=== PATIENT | female | born 1960 | race Caucasian/White ===

== ENCOUNTER 2018-08-16 14:57 | Inpatient (IN) | payer BC ==
[~2018-08-16] VITALS: Ht 167.6 cm; Wt 54.2 kg
[2018-08-16] MEDS ORDERED: FENOGLIDE40 MG PO (15:29)
[2018-08-16] MEDS ORDERED: NORVASC 10MG10 MG PO (15:29)
[2018-08-16] MEDS ORDERED: EFFEXOR100 MG PO (15:30)
[2018-08-16] MEDS ORDERED: 00186-0370-20 IH (15:30)
[2018-08-16] MEDS ORDERED: RT SPIRIVA18 MCG IH (15:31)
[2018-08-16] MEDS ORDERED: ALBUTEROL0.83 MG/ML IH (15:31)
[2018-08-16 15:36] LABS: HEMATOCRIT 45.4 % (37.0-47.0); HEMOGLOBIN 15.5 g/dl (12.5-16.0); MEAN CELL VOLUME 89 fl (80.0-100.0); MEAN CORPUSCULAR HEMOGLOBIN 31 pg (27.0-31.0); MEAN CORPUSCULAR HGB CONC 34 g/dl (33.0-37.0); MEAN PLATELET VOLUME 10.8 fl (7.4-10.4); PLATELET COUNT 190 K/mm3 (130-400); RED BLOOD COUNT 5.08 M/mm3 (4.10-5.30); REDCELL DISTRIBUTION WIDTH-CV 11.9 % (11.5-14.5)
[2018-08-16 15:44] LABS: ALANINE AMINOTRANSFERASE 25 U/L (9-52); ALBUMIN 4.1 gm/dL (3.5-5.0); ALKALINE PHOSPHATASE 51 U/L (50-136); ANION GAP 8 mmol/L (7-16); AST,SGOT 23 U/L (15-37); BILIRUBIN,TOTAL 0.5 mg/dL (0.0-1.0); BLOOD UREA NITROGEN 16 mg/dL (7-17); CALCIUM 9.4 mg/dL (8.4-10.2); CARBON DIOXIDE 29 mmol/L (22-30); CHLORIDE 95 mmol/L (98-107); GLUCOSE 107 mg/dL (74-106); LIPASE 15 U/L (23-300); POTASSIUM 4.5 mmol/L (3.4-5.0); SODIUM 132 mmol/L (137-145); TOTAL PROTEIN 7.4 gm/dL (6.4-8.2)
[2018-08-16 15:45] LABS: ALCOHOL(ethanol),MEDICAL < 10 mg/dL
[2018-08-16 15:55] LABS: C-REACTIVE PROTEIN 23.8 mg/dL (0.0-0.9)
[2018-08-16 16:03] LABS: BAND 27 % (0-10); LYMPHOCYTE 6 % (20.0-51.0); NEUTROPHILS 66 % (42.0-75.2); TOXIC GRANULATION PRESENT
[2018-08-16 16:05] LABS: PLATELET ESTIMATE NORMAL (NORMAL)
[2018-08-16] MEDS ORDERED: LOTENSIN40 MG PO (17:16)
[2018-08-16] MEDS ORDERED: EFFEXOR-XR150 MG PO (17:17)
[2018-08-16] MEDS ORDERED: CRESTOR 10MG10 MG PO (17:17)
[2018-08-16] MEDS ORDERED: NORVASC 5MG5 MG/TAB PO (17:17)
[2018-08-16] MEDS ORDERED: LOFIBRA54 MG PO (17:18)
[2018-08-16 17:47] VITALS: BP 87/53; PULSE 96; TEMP 98.4
[2018-08-16 19:58] VITALS: BP 105/60; PULSE 82; TEMP 98
[2018-08-17] VITALS (7 sets, daily range): BP systolic 95–119; BP diastolic 48–62; PULSE 72–92; TEMP 98–100.6
[2018-08-17 07:01] LABS: MEAN CELL VOLUME 92 fl (80.0-100.0); MEAN CORPUSCULAR HEMOGLOBIN 30 pg (27.0-31.0); MEAN CORPUSCULAR HGB CONC 33 g/dl (33.0-37.0); MEAN PLATELET VOLUME 11.2 fl (7.4-10.4); PLATELET COUNT 155 K/mm3 (130-400); RED BLOOD COUNT 4.14 M/mm3 (4.10-5.30); REDCELL DISTRIBUTION WIDTH-CV 12.3 % (11.5-14.5)
[2018-08-17 07:06] LABS: HEMOGLOBIN 12.5 g/dl (12.5-16.0)
[2018-08-17 07:10] LABS: CALCIUM 8.5 mg/dL (8.4-10.2); CREATININE, serum 0.86 mg/dL (0.52-1.25)
[2018-08-17 09:38] LABS: BAND 39 % (0-10); LYMPHOCYTE 2 % (20.0-51.0); NEUTROPHILS 59 % (42.0-75.2); PLATELET ESTIMATE NORMAL (NORMAL)
[2018-08-18 01:22] VITALS: BP 107/59; PULSE 86; TEMP 98.5
[2018-08-18 03:30] VITALS: BP 134/65; PULSE 76; TEMP 98.4
[2018-08-18 07:41] LABS: HEMOGLOBIN 10.9 g/dl (12.5-16.0); MEAN CELL VOLUME 88 fl (80.0-100.0); MEAN CORPUSCULAR HEMOGLOBIN 30 pg (27.0-31.0); MEAN CORPUSCULAR HGB CONC 34 g/dl (33.0-37.0); PLATELET COUNT 139 K/mm3 (130-400); RED BLOOD COUNT 3.63 M/mm3 (4.10-5.30); REDCELL DISTRIBUTION WIDTH-CV 12.1 % (11.5-14.5)
[2018-08-18 08:00] VITALS: BP 106/74; PULSE 82; TEMP 98.1
[2018-08-18 08:28] LABS: CALCIUM 8.3 mg/dL (8.4-10.2); CREATININE, serum 0.54 mg/dL (0.52-1.25); POTASSIUM 3.6 mmol/L (3.4-5.0)
[2018-08-18 09:39] LABS: BAND 30 % (0-10); LYMPHOCYTE 8 % (20.0-51.0); NEUTROPHILS 57 % (42.0-75.2); PLATELET ESTIMATE DECREASED (NORMAL)
[2018-08-18 09:40] LABS: HYPOCHROMIA 1+
[2018-08-18 16:00] VITALS: BP 140/75; PULSE 84; TEMP 98.3
[2018-08-18 21:21] VITALS: BP 132/72; PULSE 86; TEMP 98
[2018-08-19 02:26] VITALS: BP 138/80; PULSE 95
[2018-08-19 07:29] LABS: BASO % 0.3 % (0.0-2.0); EOS % 0.3 % (0-4.0); GRAN # 8.7 (1.4-6.5); GRAN % 80.3 % (42.2-75.2); HEMOGLOBIN 11.2 g/dl (12.5-16.0); LYMPH # 1.3 (1.2-3.4); LYMPH % 12.1 % (20.0-51.0); MEAN CELL VOLUME 88 fl (80.0-100.0); MEAN CORPUSCULAR HEMOGLOBIN 30 pg (27.0-31.0); MEAN CORPUSCULAR HGB CONC 34 g/dl (33.0-37.0); MEAN PLATELET VOLUME 10.9 fl (7.4-10.4); MONO # 0.7 (0.1-0.6); MONO % 6.3 % (1.7-9.3); PLATELET COUNT 185 K/mm3 (130-400); RED BLOOD COUNT 3.69 M/mm3 (4.10-5.30); REDCELL DISTRIBUTION WIDTH-CV 12.1 % (11.5-14.5)
[2018-08-19 07:33] LABS: HEMATOCRIT 32.6 % (37.0-47.0)
[2018-08-19 08:00] VITALS: BP 127/73; PULSE 81; TEMP 98.4
[2018-08-19] MEDS ORDERED: OMNICEF 300MG300 MG PO (10:22)
[2018-08-19] MEDS ORDERED: MEDROL 4MG DOSPA4 MG PO (10:23)
[2018-08-19] MEDS ORDERED: MUCINEX 60600 MG/TA1 PO (10:23)
[2018-08-19 12:17] VITALS: BP 136/74; PULSE 83; TEMP 98.4
== END 2018-08-19 16:43 | disposition home or self-care (01) | DRG 871 ==
LOC: COL.ER 14:57 → MEDICAL 16:44
PROVIDERS: Emergency Medicine; Internal Medicine; Physician Assistant
DX: A41.9 Sepsis, unspecified organism (principal); J18.9 Pneumonia, unspecified organism; J96.01 Acute respiratory failure with hypoxia; J44.0 Chronic obstructive pulmonary disease with (acute) lower respiratory infection; E87.1 Hypo-osmolality and hyponatremia; J44.1 Chronic obstructive pulmonary disease with (acute) exacerbation; I10 Essential (primary) hypertension; E78.5 Hyperlipidemia, unspecified; Z87.891 Personal history of nicotine dependence; K80.20 Calculus of gallbladder without cholecystitis without obstruction; K76.89 Other specified diseases of liver
CPT/HCPCS: 99222-AI; 99232-AI; 99239; A4216; J0456; J0696; J1650; J2270; J2405; J7030; J7040; J7050; J7512; Q9967

== ENCOUNTER 2018-11-13 05:34 | Emergency (ER) | payer BC ==
[~2018-11-13] VITALS: Ht 154.9 cm; Wt 52.3 kg
[~2018-11-13 05:34] MED LIST: 00186-0370-20 IH; ALBUTEROL0.83 MG/ML IH; CRESTOR 10MG10 MG PO; EFFEXOR-XR150 MG PO; EFFEXOR100 MG PO; FENOGLIDE40 MG PO; LOFIBRA54 MG PO; LOTENSIN40 MG PO; MEDROL 4MG DOSPA4 MG PO; MUCINEX 60600 MG/TA1 PO; NORVASC 10MG10 MG PO; NORVASC 5MG5 MG/TAB PO; OMNICEF 300MG300 MG PO; RT SPIRIVA18 MCG IH
[2018-11-13 05:48] LABS: BASO % 0.5 % (0.0-2.0); EOS % 0.4 % (0-4.0); GRAN # 4.4 (1.4-6.5); GRAN % 58.5 % (42.2-75.2); HEMATOCRIT 50.7 % (37.0-47.0); HEMOGLOBIN 16.3 g/dl (12.5-16.0); LYMPH # 2.2 (1.2-3.4); LYMPH % 28.4 % (20.0-51.0); MEAN CELL VOLUME 90 fl (80.0-100.0); MEAN CORPUSCULAR HEMOGLOBIN 29 pg (27.0-31.0); MEAN CORPUSCULAR HGB CONC 32 g/dl (33.0-37.0); MEAN PLATELET VOLUME 10.5 fl (7.4-10.4); MONO # 0.9 (0.1-0.6); MONO % 11.9 % (1.7-9.3); PLATELET COUNT 206 K/mm3 (130-400); RED BLOOD COUNT 5.62 M/mm3 (4.10-5.30); REDCELL DISTRIBUTION WIDTH-CV 13.9 % (11.5-14.5)
[2018-11-13 05:54] LABS: PROTHROMBIN TIME 11.6 SECONDS (9.7-12.8)
[2018-11-13 05:55] LABS: ARTERIAL BLD GAS O2 SATURATION 93.6 % (92-100); ARTERIAL BLD GAS TCO2 CT 28.2; ARTERIAL BLOOD GAS BASE EXCESS -2.2 (-2-2); ARTERIAL BLOOD GAS HCO3 26.4 meq/L (22-26); ARTERIAL BLOOD GAS PCO2 61.1 mmHg (35-45); ARTERIAL BLOOD GAS PO2 79.1 mmHg (80-100); ARTERIAL BLOOD GAS pH 7.25 (7.35-7.45)
[2018-11-13 06:03] LABS: ALANINE AMINOTRANSFERASE 14 U/L (9-52); ALBUMIN 4.6 gm/dL (3.5-5.0); ALKALINE PHOSPHATASE 69 U/L (50-136); ANION GAP 8 mmol/L (7-16); AST,SGOT 34 U/L (15-37); BILIRUBIN,TOTAL 0.4 mg/dL (0.0-1.0); BLOOD UREA NITROGEN 8 mg/dL (7-17); CALCIUM 10.2 mg/dL (8.4-10.2); CARBON DIOXIDE 32 mmol/L (22-30); CHLORIDE 102 mmol/L (98-107); CREATININE, serum 0.65 mg/dL (0.52-1.25); GLUCOSE 178 mg/dL (74-106); POTASSIUM 3.9 mmol/L (3.4-5.0); SODIUM 142 mmol/L (137-145); TOTAL PROTEIN 8.4 gm/dL (6.4-8.2)
[2018-11-13 06:18] LABS: TROPONIN-I < 0.012 ng/mL (0.000-0.034)
[2018-11-13 06:58] LABS: ARTERIAL BLD GAS O2 SATURATION 95.1 % (92-100); ARTERIAL BLD GAS TCO2 CT 29.5; ARTERIAL BLOOD GAS BASE EXCESS 0.1 (-2-2); ARTERIAL BLOOD GAS HCO3 27.8 meq/L (22-26); ARTERIAL BLOOD GAS PCO2 57.5 mmHg (35-45)
[2018-11-13] MEDS ORDERED: 00186-0370-20 IH (07:14)
[2018-11-13] MEDS ORDERED: PROAIR HFA0.09 MG/AC IH (07:14)
[2018-11-13] MEDS ORDERED: NORVASC 5MG5 MG/TAB PO (07:15)
[2018-11-13 09:06] VITALS: PULSE 98; TEMP 29
[2018-11-13 09:45] VITALS: BP 110/82
== END 2018-11-13 10:10 | disposition short-term general hospital (02) ==
LOC: COL.ER 05:34
PROVIDERS: Emergency Medicine
DX: J44.1 Chronic obstructive pulmonary disease with (acute) exacerbation (principal); J96.90 Respiratory failure, unspecified, unspecified whether with hypoxia or hypercapnia; I10 Essential (primary) hypertension; E78.5 Hyperlipidemia, unspecified; Z98.890 Other specified postprocedural states; Z87.891 Personal history of nicotine dependence
CPT/HCPCS: J2060; J2270; J3475; J7030

== ENCOUNTER → 2019-01-11 | Outpatient (CLI) | payer BC ==
[~2019-01-11] MED LIST changes: +PROAIR HFA0.09 MG/AC IH
[2019-01-11 10:24] LABS: ARTERIAL BLD GAS O2 SATURATION 93.7 % (92-100); ARTERIAL BLD GAS TCO2 CT 25.9; ARTERIAL BLOOD GAS BASE EXCESS 0.1 (-2-2); ARTERIAL BLOOD GAS HCO3 24.7 meq/L (22-26); ARTERIAL BLOOD GAS PCO2 39.9 mmHg (35-45); ARTERIAL BLOOD GAS PO2 71.7 mmHg (80-100); ARTERIAL BLOOD GAS pH 7.41 (7.35-7.45)
== END ==
LOC: COL.PUL 09:56
PROVIDERS: Internal Medicine Pulmonary Disease
DX: J44.9 Chronic obstructive pulmonary disease, unspecified (principal); Z87.891 Personal history of nicotine dependence

== ENCOUNTER 2019-07-04 18:18 | Emergency (ER) | payer BC ==
[~2019-07-04] VITALS: Ht 167.6 cm; Wt 47.7 kg
[2019-07-04 18:23] VITALS: TEMP 98.8
[2019-07-04 18:51] LABS: BASO % 0.1 % (0.0-2.0); GRAN # 10.5 (1.4-6.5); GRAN % 88.4 % (42.2-75.2); HEMATOCRIT 47.2 % (37.0-47.0); HEMOGLOBIN 15.9 g/dl (12.5-16.0); LYMPH # 0.9 (1.2-3.4); LYMPH % 7.2 % (20.0-51.0); MEAN CELL VOLUME 90 fl (80.0-100.0); MEAN CORPUSCULAR HEMOGLOBIN 30 pg (27.0-31.0); MEAN CORPUSCULAR HGB CONC 34 g/dl (33.0-37.0); MEAN PLATELET VOLUME 10.8 fl (7.4-10.4); MONO # 0.5 (0.1-0.6); MONO % 3.9 % (1.7-9.3); PLATELET COUNT 280 K/mm3 (130-400); RED BLOOD COUNT 5.23 M/mm3 (4.10-5.30); REDCELL DISTRIBUTION WIDTH-CV 12.2 % (11.5-14.5)
[2019-07-04 19:06] LABS: CALCIUM 10.2 mg/dL (8.4-10.2); CREATININE, serum 0.92 (0.52-1.25); POTASSIUM 4.2 mmol/L (3.4-5.0)
[2019-07-04] MEDS ORDERED: DOXYCYCLINE HY100 MG PO (21:46)
[2019-07-04] MEDS ORDERED: ATROVENT I0.2 MG/1 M IH (21:46)
[2019-07-04 22:04] VITALS: BP 139/78; PULSE 84
== END 2019-07-04 22:04 | disposition home or self-care (01) ==
LOC: COL.ER 18:18
PROVIDERS: Emergency Medicine
DX: J44.1 Chronic obstructive pulmonary disease with (acute) exacerbation (principal); Z87.09 Personal history of other diseases of the respiratory system; Z99.81 Dependence on supplemental oxygen; Z79.51 Long term (current) use of inhaled steroids
CPT/HCPCS: J2930; J3475

== ENCOUNTER → 2019-11-11 | Outpatient (CLI) | payer OTHER ==
[~2019-11-11] MED LIST changes: +ATROVENT I0.2 MG/1 M IH; +DOXYCYCLINE HY100 MG PO
== END ==
LOC: MC.RAD 10:00
DX: Z12.31 Encounter for screening mammogram for malignant neoplasm of breast (principal)

== ENCOUNTER 2020-06-13 17:30 | Inpatient (IN) | payer MEDICAID ==
[~2020-06-13] VITALS: Ht 167.6 cm; Wt 42.4 kg
[2020-06-13 18:11] LABS: BASO % 0.3 % (0.0-2.0); EOS % 0.3 % (0-4.0); GRAN % 68.9 % (42.2-75.2); HEMATOCRIT 42.9 % (37.0-47.0); HEMOGLOBIN 14.9 g/dl (12.5-16.0); LYMPH # 1.7 (1.2-3.4); LYMPH % 19.9 % (20.0-51.0); MEAN CELL VOLUME 92 fl (80.0-100.0); MEAN CORPUSCULAR HEMOGLOBIN 32 pg (27.0-31.0); MEAN CORPUSCULAR HGB CONC 35 g/dl (33.0-37.0); MEAN PLATELET VOLUME 9.9 fl (7.4-10.4); MONO # 0.9 (0.1-0.6); MONO % 10.1 % (1.7-9.3); PLATELET COUNT 241 K/mm3 (130-400); RED BLOOD COUNT 4.68 M/mm3 (4.10-5.30); REDCELL DISTRIBUTION WIDTH-CV 12.4 % (11.5-14.5)
[2020-06-13 18:21] LABS: BILIRUBIN,TOTAL 0.3 mg/dL (0.0-1.0); CALCIUM 9.6 mg/dL (8.4-10.2); CREATININE, serum 0.99 (0.52-1.25); TOTAL PROTEIN 6.8 gm/dL (6.4-8.2)
[2020-06-13] MEDS ORDERED: PREDNISONE10 MG PO (21:33)
[2020-06-14] MEDS ORDERED: ZITHROMAX 250M250 MG PO (00:57)
[2020-06-14] MEDS ORDERED: EPA FISH OIL1 SGL PO (00:59)
--- NOTE | 2020-06-14 01:30 | NUR ---
Patient arrived from ER to medical floor at approximately 0045. Alert and oriented, and able to make needs known. Denies having pain and discomfort at this time. Peripheral INT started to right forearm. Fluids started per orders. Site is without redness, warmth, swelling, and pain. Reports SOB with exertion, denies at rest. On oxygen at 2 L/min via NC. HRR. Capillary refill less than 3 seconds. Non-tenting skin turgor. BSAx4. Abdomen soft and non-tender. No edema. Voices no questions, needs, or concerns at this time. Resting in bed with call light within reach.
[2020-06-14 01:32] VITALS: BP 122/75; PULSE 87; TEMP 97.6
[2020-06-14] MEDS ORDERED: ONE-A-DAY ESSE1 EACH PO (02:45)
[2020-06-14 03:51] VITALS: BP 135/73; PULSE 83; TEMP 98.2
--- NOTE | 2020-06-14 06:16 | NUR ---
Patient has been resting in bed with call light within reach. Continues to wear oxygen at 2 L/min via NC. Voices no questions, needs, or concerns at this time.
--- NOTE | 2020-06-14 07:00 | NUR ---
Report with JOHNNIE Elias. Pt resting in bed, awakens briefly, denies pain or needs. Call light in reach.
[2020-06-14 07:06] LABS: HEMATOCRIT 39.7 % (37.0-47.0); HEMOGLOBIN 13.6 g/dl (12.5-16.0); MEAN CELL VOLUME 93 fl (80.0-100.0); MEAN CORPUSCULAR HEMOGLOBIN 32 pg (27.0-31.0); MEAN CORPUSCULAR HGB CONC 34 g/dl (33.0-37.0); MEAN PLATELET VOLUME 10.1 fl (7.4-10.4); PLATELET COUNT 213 K/mm3 (130-400); RED BLOOD COUNT 4.26 M/mm3 (4.10-5.30); REDCELL DISTRIBUTION WIDTH-CV 12.5 % (11.5-14.5)
[2020-06-14 07:15] LABS: CALCIUM 9.1 mg/dL (8.4-10.2); CREATININE, serum 0.62 (0.52-1.25); POTASSIUM 4.3 mmol/L (3.4-5.0)
[2020-06-14 07:35] VITALS: BP 141/75; PULSE 85; TEMP 97.8
[2020-06-14 08:09] LABS: BAND 5 % (0-10); LYMPHOCYTE 10 % (20.0-51.0); NEUTROPHILS 85 % (42.0-75.2); PLATELET ESTIMATE NORMAL (NORMAL)
--- NOTE | 2020-06-14 08:40 | NUR ---
Assessment complete. Pt resting in bed, A&O x 4. Breath sounds coarse in upper lungs bilat. Pt denies pain at this time. IVF's infusing per orders through right forearm site without s/s of complications. PT and OT in room at this time. No further needs reported. Call light in reach.
[2020-06-14 12:12] VITALS: BP 145/79; PULSE 83; TEMP 97.9
--- NOTE | 2020-06-14 13:23 | NUR ---
IVF's stopped and disconnected per orders.
--- NOTE | 2020-06-14 16:01 | NUR ---
KIRSTEN met with the patient to discuss discharge plan. The patient lives alone in [place]. Her daughter, Maricruz Villa (ph#[phone]), and son-in-law also live in [place]. She reports independence with ADLs and does not have any DME. The patient states that ADLs have been more difficult lately, due to being short of breath. She states that she just got health insurance, last . [facility] has been supplying her with portable oxygen tanks. She does not have a concentrator. The patient's PCP is Dr. Bonnie Callahan and she receives her medications at [facility]. She reports no difficulties obtaining her meds. She states that she is on disability and receives around $1,400 a month. The patient does not have advanced directives, but she was interested in obtaining a form for DPOA-HC. KIRSTEN provided. The patient is not . She states that she has two children: Maricruz and Georgette. Georgette lives in [place]. The patient plans to return home upon discharge. PT/OT recommended home health for the patient. The patient has Medicaid and Medicaid does not cover therapy in the home. KIRSTEN staffed with [facility]. Nay reports outpatient therapy would be okay for the patient. KIRSTEN discussed this with the patient. The patient reports that she has noticed that she has become weaker and would be interested in outpatient PT/OT. She states that she still drives. KIRSTEN also informed the patient about how she has transportation services through Medicaid. The patient verbalized understanding. KIRSTEN will need to follow up on outpatient therapy center preference and contact [facility]. KIRSTEN to continue to follow.
[2020-06-14 16:08] VITALS: BP 138/72; PULSE 85; TEMP 98.2
--- NOTE | 2020-06-14 17:33 | NUR ---
Pt sitting up in bed, denies pain or further c/o at this time. Uneventful shift. Pt has ambulated in hallway with therapy x 2 with slight dyspnea. O2 remains at 2 L/min via NC. Call light in reach.
[2020-06-14 20:16] VITALS: BP 143/72; PULSE 89; TEMP 98.2
--- NOTE | 2020-06-14 20:40 | NUR ---
Initial shift assessment done- denies pain, states feeling better-o2 at 2L/nc, sats 95%, up to bathroom on own-- INT to R/FA=some bruising around site but flushes well with good blood return. Getting IV steroids
[2020-06-15] VITALS (7 sets, daily range): BP systolic 126–152; BP diastolic 72–87; PULSE 77–90; TEMP 97–98.3
--- NOTE | 2020-06-15 05:33 | NUR ---
Quiet night- did get a few hours of sleep- denies pain. O2 at 2L/nc- sats 98% at this time. No requests.
[2020-06-15 06:46] LABS: MEAN CELL VOLUME 94 fl (80.0-100.0); MEAN CORPUSCULAR HEMOGLOBIN 31 pg (27.0-31.0); MEAN CORPUSCULAR HGB CONC 33 g/dl (33.0-37.0); PLATELET COUNT 196 K/mm3 (130-400); RED BLOOD COUNT 4.49 M/mm3 (4.10-5.30); REDCELL DISTRIBUTION WIDTH-CV 12.4 % (11.5-14.5)
[2020-06-15 06:59] LABS: CALCIUM 9.3 mg/dL (8.4-10.2); CREATININE, serum 0.69 (0.52-1.25); POTASSIUM 3.8 mmol/L (3.4-5.0)
--- NOTE | 2020-06-15 07:38 | NUR ---
SPO2 97% ON 2 LPM, EXP WHEEZ RLL, OTHERWISE COARSE T/O.
[2020-06-15 07:41] LABS: BAND 6 % (0-10); LYMPHOCYTE 3 % (20.0-51.0); NEUTROPHILS 90 % (42.0-75.2); PLATELET ESTIMATE NORMAL (NORMAL)
--- NOTE | 2020-06-15 08:29 | NUR ---
PATIENT REQUIRES 3LPM WHILE AMBULATING, 1 LPM WHILE AT REST.
--- NOTE | 2020-06-15 09:06 | NUR ---
[place] NOTE: PT AOX4. DENIES PAIN. APPEARS MILDLY SOB AT REST BUT STATED NONE AT REST AND ONLY WITH EXERTION. ON 2L NC
--- NOTE | 2020-06-15 10:59 | NUR ---
Initial visit; Patient thanked Route Sales Representative for offering prayer and God's blessings.
--- NOTE | 2020-06-15 14:49 | NUR ---
RT CALLED IN RELATION TO AMBULATORY PULSE OX ORDER DATES FOR TOMORROW @0700. RT TO PASS ON TO DON FOR TOMOROW
--- NOTE | 2020-06-15 16:30 | NUR ---
Explosive Ordnance Disposal Technician contacted Angeles at [employer] and provided patient's insurance verification, H&P, and Pulmonology Consult. SW followed up with patient who is unsure about outpatient therapy. SW will continue to follow.
--- NOTE | 2020-06-15 19:27 | NUR ---
CHANGE OF SHIFT REPORT RECEIVED FROM DAY SHIFT NURSE. TELE IN PLACE.
--- NOTE | 2020-06-15 20:00 | NUR ---
PATIENT UP AD KRUPA IN ROOM WITH PROBLEMS, DENIES CHEST PAIN/INCREASED SHORTNESS OF BREATH. TELE IN PLACE/ O2 PER NC. REPORTS FEELING SOME ABD FULLNESS, AGREED TO TAKE PRUNE JUICE.
[2020-06-16 04:28] VITALS: BP 134/84; PULSE 74; TEMP 98.4
[2020-06-16 07:05] LABS: GRAN # 8.1 (1.4-6.5); GRAN % 78.9 % (42.2-75.2); HEMATOCRIT 39.5 % (37.0-47.0); HEMOGLOBIN 13.5 g/dl (12.5-16.0); LYMPH # 1.5 (1.2-3.4); LYMPH % 14.9 % (20.0-51.0); MEAN CELL VOLUME 94 fl (80.0-100.0); MEAN CORPUSCULAR HEMOGLOBIN 32 pg (27.0-31.0); MEAN CORPUSCULAR HGB CONC 34 g/dl (33.0-37.0); MEAN PLATELET VOLUME 10.1 fl (7.4-10.4); MONO # 0.6 (0.1-0.6); MONO % 5.6 % (1.7-9.3); PLATELET COUNT 173 K/mm3 (130-400); RED BLOOD COUNT 4.22 M/mm3 (4.10-5.30); REDCELL DISTRIBUTION WIDTH-CV 12.4 % (11.5-14.5)
[2020-06-16 07:27] LABS: CALCIUM 8.8 mg/dL (8.4-10.2); CREATININE, serum 0.58 (0.52-1.25); POTASSIUM 3.4 mmol/L (3.4-5.0)
[2020-06-16 07:56] VITALS: BP 150/79; PULSE 86; TEMP 98.1
--- NOTE | 2020-06-16 08:00 | NUR ---
CHANGE OF SHIFT REPORT GIVEN TO DAY SHIFT NURSESHRUTHI. TELE IN PLACE, PATIENT UP INDEPENDENTLY IN ROOM WITH NO PROBLEMS.
[2020-06-16 12:38] VITALS: BP 136/95; PULSE 112; TEMP 97.4
--- NOTE | 2020-06-16 14:36 | NUR ---
Patient is alert and oriented, complain of mild cough. using accessory muscles to breath. denies any pain. currently on 2L of oxygen with saturation > 92%. patient discharging home with portable oxygen tank. grocery worker setup oxygen supply and outpatient Physical therapy appointments post discharge. INT discontinued. patient discharging home.
[2020-06-16] MEDS ORDERED: EFFEXOR XR75 MG/CAP PO (15:04)
[2020-06-16] MEDS ORDERED: ZOLOFT 50MG50 MG PO (15:06)
[2020-06-16] MEDS ORDERED: PREDNISONE10 MG PO (15:10)
[2020-06-16] MEDS ORDERED: VISTARIL 2525 MG/CAP PO (15:11)
--- NOTE | 2020-06-16 16:36 | NUR ---
Laminator Printed Circuit Boards faxed order for oxygen and exercise oximetry to [facility]. Angeles at [email or web address] advised they will set up patient's concentrator at home at discharge. KIRSTEN met with patient and made an appointment for outpatient physical therapy at [facility] on [address] as patient reports she lives close to this office. KIRSTEN provided appointment to head gauge unit operator. KIRSTEN faxed referral and order for outpatient PT to [facility]. SW contacted Angeles at [email or web address] to notify her that patient will be leaving the hospital soon so she can meet patient at her home. No additional needs at this time.
== END 2020-06-16 16:00 | disposition home or self-care (01) | DRG 191 ==
LOC: COL.ER 17:30 → MEDICAL 23:15
PROVIDERS: Emergency Medicine; Hospitalist; Nurse Practitioner Family; Student in an Organized Health Care Education/Training Program; ADMIT Internal Medicine
DX: J44.1 Chronic obstructive pulmonary disease with (acute) exacerbation (principal); J96.11 Chronic respiratory failure with hypoxia; E87.1 Hypo-osmolality and hyponatremia; E46 Unspecified protein-calorie malnutrition; F32.9 Major depressive disorder, single episode, unspecified; F19.94 Other psychoactive substance use, unspecified with psychoactive substance-induced mood disorder; F10.10 Alcohol abuse, uncomplicated; Z87.01 Personal history of pneumonia (recurrent); Z87.891 Personal history of nicotine dependence; F41.0 Panic disorder [episodic paroxysmal anxiety]
CPT/HCPCS: 99222-AI; 99232-AI; 99239; A9284; J1650; J2930; J7030; J7512; Q9967

== ENCOUNTER 2020-08-04 11:15 | Outpatient (RCR) | payer MEDICAID ==
[~2020-08-04 11:15] MED LIST changes: +EFFEXOR XR75 MG/CAP PO; +EPA FISH OIL1 SGL PO; +ONE-A-DAY ESSE1 EACH PO; +PREDNISONE10 MG PO; +VISTARIL 2525 MG/CAP PO; +ZITHROMAX 250M250 MG PO; +ZOLOFT 50MG50 MG PO
== END 2020-09-27 | disposition home or self-care (01) ==
LOC: WSC
DX: J44.1 Chronic obstructive pulmonary disease with (acute) exacerbation (principal)

== ENCOUNTER 2021-07-31 10:31 | Emergency (ER) | payer MEDICAID ==
[~2021-07-31] VITALS: Ht 167.6 cm; Wt 45.0 kg
[2021-07-31 10:45] VITALS: TEMP 98.8
[2021-07-31 12:09] LABS: BASO % 0.2 % (0.0-2.0); EOS % 0.1 % (0-4.0); GRAN # 8.3 (1.4-6.5); GRAN % 83.9 % (42.2-75.2); HEMOGLOBIN 11.7 g/dl (12.5-16.0); LYMPH # 0.8 (1.2-3.4); LYMPH % 8.1 % (20.0-51.0); MEAN CELL VOLUME 87 fl (80.0-100.0); MEAN CORPUSCULAR HEMOGLOBIN 28 pg (27.0-31.0); MEAN CORPUSCULAR HGB CONC 32 g/dl (33.0-37.0); MEAN PLATELET VOLUME 10.6 fl (7.4-10.4); MONO # 0.7 (0.1-0.6); MONO % 7.4 % (1.7-9.3); PLATELET COUNT 186 K/mm3 (130-400); RED BLOOD COUNT 4.15 M/mm3 (4.10-5.30); REDCELL DISTRIBUTION WIDTH-CV 13.2 % (11.5-14.5)
[2021-07-31 12:10] LABS: ALBUMIN 3.4 gm/dL (3.5-5.0); BILIRUBIN,TOTAL 0.4 mg/dL (0.2-1.2); CALCIUM 10.2 mg/dL (8.4-10.2); CREATININE, serum 0.75 mg/dL (0.57-1.11); POTASSIUM 4.3 mmol/L (3.5-4.5); TOTAL PROTEIN 6.8 gm/dL (6.2-8.1)
[2021-07-31 12:11] LABS: HEMATOCRIT 36.2 % (37.0-47.0)
[2021-07-31 12:15] LABS: TROPONIN-I 0.013 ng/mL (0.00-0.033)
[2021-07-31] MEDS ORDERED: DOXYCYCLINE 10100 MG PO (14:06)
[2021-07-31] MEDS ORDERED: PREDNISONE20 MG PO (14:06)
[2021-07-31] MEDS ORDERED: NORCO 325 MG-51 TAB PO (14:22)
[2021-07-31 14:46] VITALS: BP 111/71; PULSE 86
== END 2021-07-31 14:51 | disposition home or self-care (01) ==
LOC: COL.ER 10:31
PROVIDERS: Nurse Practitioner
DX: J44.9 Chronic obstructive pulmonary disease, unspecified (principal); R07.81 Pleurodynia; Z20.822 Contact with and (suspected) exposure to COVID-19; Z87.891 Personal history of nicotine dependence; Z79.52 Long term (current) use of systemic steroids; Z79.899 Other long term (current) drug therapy; Z79.51 Long term (current) use of inhaled steroids

== ENCOUNTER → 2023-01-01 | Outpatient (CLI) | payer MEDICARE, MEDICAID ==
[~2023-01-01] MED LIST changes: +ABILIFY5 MG PO; +ATARAX 25MG25 MG/TAB PO; +BREZTRI AEROS10.7 GM IH; +CALCIUM 600 MG1 EAC2 PO; +DOXYCYCLINE 10100 MG PO; +NORCO 325 MG-51 TAB PO; +PREDNISONE 2.52.5 MG PO; +PREDNISONE20 MG PO; +THEO-DUR 3300 MG/TAB PO; +ZANAFLEX 4MG TAB4 MG PO; +ZOLOFT 100MG100 MG PO
== END ==
LOC: COL.RAD 10:14
DX: Z12.2 Encounter for screening for malignant neoplasm of respiratory organs (principal); J43.9 Emphysema, unspecified; R91.1 Solitary pulmonary nodule; Z87.891 Personal history of nicotine dependence

== ENCOUNTER 2023-01-31 12:01 | Emergency (ER) | payer MEDICARE, MEDICAID ==
[~2023-01-31] VITALS: Ht 167.6 cm; Wt 44.8 kg
[~2023-01-31 12:01] MED LIST changes: +MS CONTIN 115 MG/TAB PO; +SENNA-S 50 MG-81 TAB PO
[2023-01-31 13:15] LABS: BASO % 0.4 % (0.0-2.0); EOS # 0.1 K/mm3 (0.0-0.7); EOS % 0.7 % (0.0-4.0); GRAN # 8.7 K/mm3 (1.4-6.5); GRAN % 85.6 % (42.2-75.2); HEMOGLOBIN 12.7 g/dl (12.5-16.0); LYMPH # 0.9 K/mm3 (1.2-3.4); LYMPH % 9.2 % (20.0-51.0); MEAN CELL VOLUME 91 fl (80.0-100.0); MEAN CORPUSCULAR HEMOGLOBIN 29 pg (27-31); MEAN CORPUSCULAR HGB CONC 32 g/dl (33.0-37.0); MEAN PLATELET VOLUME 10.8 fl (7.4-10.4); MONO # 0.4 K/mm3 (0.1-0.6); MONO % 3.7 % (1.7-9.3); PLATELET COUNT 195 K/mm3 (130-400); RED BLOOD COUNT 4.42 M/mm3 (4.10-5.30); REDCELL DISTRIBUTION WIDTH-CV 13.9 % (11.5-14.5)
[2023-01-31 13:24] LABS: ALBUMIN 3.9 gm/dL (3.4-4.8); ANION GAP 10 mmol/L (7-16); BLOOD UREA NITROGEN 16 mg/dL (10-20); CALCIUM 9.9 mg/dL (8.4-10.2); CARBON DIOXIDE 32 mmol/L (23-31); CHLORIDE 99 mmol/L (98-107); CREATININE, serum 0.69 mg/dL (0.57-1.11); GLUCOSE 114 mg/dL (70-99); PHOSPHOROUS 3.7 mg/dL (2.3-4.7); SODIUM 141 mmol/L (136-145)
[2023-01-31 13:34] LABS: TROPONIN-I < 0.010 ng/mL (0.00-0.033)
[2023-01-31] MEDS ORDERED: DOXYCYCLINE 10100 MG PO (15:07)
[2023-01-31] MEDS ORDERED: PREDNISONE20 MG PO (15:07)
[2023-01-31 15:28] VITALS: BP 113/75; PULSE 89; TEMP 98.7
== END 2023-01-31 15:28 | disposition home or self-care (01) ==
LOC: COL.ER 12:01
PROVIDERS: Emergency Medicine
DX: J43.9 Emphysema, unspecified (principal); J96.11 Chronic respiratory failure with hypoxia; Z99.81 Dependence on supplemental oxygen; Z79.52 Long term (current) use of systemic steroids
CPT/HCPCS: J2920

== ENCOUNTER 2023-10-28 11:53 | Inpatient (IN) | payer MEDICARE, MEDICAID ==
[~2023-10-28] VITALS: Ht 167.6 cm; Wt 43.1 kg
[2023-10-28 13:32] LABS: BASO % 0.2 % (0.0-2.0); EOS % 0.3 % (0.0-4.0); GRAN # 7.6 K/mm3 (1.4-6.5); GRAN % 87.9 % (42.2-75.2); HEMATOCRIT 37.5 % (37.0-47.0); HEMOGLOBIN 11.6 g/dl (12.5-16.0); LYMPH # 0.4 K/mm3 (1.2-3.4); LYMPH % 4.1 % (20.0-51.0); MEAN CELL VOLUME 90 fl (80.0-100.0); MEAN CORPUSCULAR HEMOGLOBIN 28 pg (27-31); MEAN CORPUSCULAR HGB CONC 31 g/dl (33.0-37.0); MEAN PLATELET VOLUME 10.9 fl (7.4-10.4); MONO # 0.6 K/mm3 (0.1-0.6); MONO % 7.2 % (1.7-9.3); PLATELET COUNT 166 K/mm3 (130-400); RED BLOOD COUNT 4.16 M/mm3 (4.10-5.30); REDCELL DISTRIBUTION WIDTH-CV 13.8 % (11.5-14.5)
[2023-10-28 13:49] LABS: ALANINE AMINOTRANSFERASE 14 U/L (0-55); ALBUMIN 3.6 gm/dL (3.4-4.8); ALKALINE PHOSPHATASE 56 U/L (40-150); ANION GAP 12 mmol/L (7-16); AST,SGOT 27 U/L (5-34); BILIRUBIN,TOTAL 0.3 mg/dL (0.2-1.2); BLOOD UREA NITROGEN 11 mg/dL (10-20); CALCIUM 10.4 mg/dL (8.4-10.2); CARBON DIOXIDE 32 mmol/L (23-31); CHLORIDE 100 mmol/L (98-107); CREATININE, serum 0.69 mg/dL (0.57-1.11); GLUCOSE 113 mg/dL (70-99); POTASSIUM 3.7 mmol/L (3.5-4.5); SODIUM 144 mmol/L (136-145); TOTAL PROTEIN 6.5 gm/dL (6.2-8.1)
[2023-10-28 13:56] LABS: TROPONIN-I < 0.010 ng/mL (0.00-0.033)
[2023-10-28 16:13] LABS: ARTERIAL BLD GAS TCO2 CT 30.6; ARTERIAL BLOOD GAS BASE EXCESS 3.1 (-2-2); ARTERIAL BLOOD GAS HCO3 29.1 meq/L (22-26); ARTERIAL BLOOD GAS PCO2 50.2 mmHg (35-45); ARTERIAL BLOOD GAS PO2 104.4 mmHg (80-100); ARTERIAL BLOOD GAS pH 7.38 (7.35-7.45)
[2023-10-28] MEDS ORDERED: IPRATROPIUM BROM3 M1 IH (17:20)
[2023-10-28] MEDS ORDERED: TRELEGY ELLIPT1 EAC1 IH (17:21)
[2023-10-28] MEDS ORDERED: PREDNISONE10 MG PO (17:21)
[2023-10-28] MEDS ORDERED: SINGULAIR 110 MG/TAB PO (17:21)
[2023-10-28] MEDS ORDERED: FLONASE NASAL S16 GM NS (17:22)
[2023-10-28] MEDS ORDERED: DALIRESP500 MCG PO (17:23)
--- NOTE | 2023-10-28 17:45 | NUR ---
PATIENT ARRIVED FROM ER ON 4LNC. PATIENTS VSS. PATIENT DENIES ANY NEEDS OR COMPLAINTS AT THIS TIME. PATIENT ORIENTED TO ROOM. CALL LIGHT WITHIN REACH.
[2023-10-28 17:48] VITALS: BP 119/72; PULSE 88; TEMP 98.6
--- NOTE | 2023-10-28 20:00 | NUR ---
UPON SHIFT ASSESSMENT, ISAIAH WAS UP IN BED EATING DINNER TRAY WITH DAUGHTER BEDSIDE. SHE IS AXO X 4 AND DYSPNEA WAS OBSERVED WHILE EATING AND ANSWERING QUESTIONS. SHE IS ON 5L NC AND VSS ARE WNL AND TELE IS NS. FINCRACKLES WERE NOTED IN UPPER LOBES. SHE DENIES CHEST PAIN AND OTHER PAIN AT THIS TIME. CALL LIGHT WITHIN REACH.
[2023-10-28 20:29] VITALS: BP 115/70; PULSE 90; TEMP 97.6
[2023-10-28 21:00] VITALS: BP_SYST 115
[2023-10-29] VITALS (15 sets, daily range): BP systolic 121–150; BP diastolic 54–85; PULSE 61–82; TEMP 97.9–99.1
--- NOTE | 2023-10-29 04:20 | NUR ---
CALL PLACED TO LABORATORY TO GET CLARIFICATION ON RSV PANEL. STEPHANY.PELLET PRESS OPERATOR, CONFIRMED PATIENT IS POSITIVE FOR RSV. CALL PLACED TO HOSPITALIST TO UPDATE.
[2023-10-29 06:12] LABS: BASO % 0.3 % (0.0-2.0); GRAN % 82.6 % (42.2-75.2); HEMOGLOBIN 11.5 g/dl (12.5-16.0); LYMPH # 0.5 K/mm3 (1.2-3.4); LYMPH % 7.6 % (20.0-51.0); MEAN CELL VOLUME 88 fl (80.0-100.0); MEAN CORPUSCULAR HEMOGLOBIN 28 pg (27-31); MEAN CORPUSCULAR HGB CONC 32 g/dl (33.0-37.0); MEAN PLATELET VOLUME 10.9 fl (7.4-10.4); MONO # 0.6 K/mm3 (0.1-0.6); MONO % 9.2 % (1.7-9.3); PLATELET COUNT 171 K/mm3 (130-400); REDCELL DISTRIBUTION WIDTH-CV 13.7 % (11.5-14.5)
[2023-10-29 06:14] LABS: HEMATOCRIT 36.1 % (37.0-47.0)
[2023-10-29 06:35] LABS: ALBUMIN 3.4 gm/dL (3.4-4.8); CALCIUM 10.2 mg/dL (8.4-10.2); CREATININE, serum 0.73 mg/dL (0.57-1.11); MAGNESIUM 1.7 mg/dL (1.6-2.6); PHOSPHOROUS 2.1 mg/dL (2.3-4.7); POTASSIUM 4.5 mmol/L (3.5-4.5)
--- NOTE | 2023-10-29 07:00 | NUR ---
ISAIAH THROUGHOUT THE NIGHT EXHIBITED NON PRODUCTIVE COUGH. ADVISED DAYSHIFT TO SEEK ORDER FOR MUCINEX. RSV PANEL RESULTS POSITIVE- CONTACT AND DROPLET PRECAUTIONS IN PLACE. DECADRONE, DOXYCYCLINE AND ROCEPHINE ADMINISTERED. PATIENT HAS DUONEB TREATMENTS WELL. VSS ARE CURRENTLY WNL, ISAIAH IS AXO X4 AND TELE IS NS. CALL LIGHT WITHIN REACH.
--- NOTE | 2023-10-29 10:00 | NUR ---
PT RESTING IN BED UPON ENTERING. ASSESSMENT DONE. PT DENIES PAIN AT THIS TIME BUT REPORTS "CHEST CONGESTION". PT HAS A NONPRODUCTIVE COUGH AND IS ON 5L NASAL CANNULA. O2SATS 97% AND PTS O2 TITRATED DOWN TO 4L WHICH IS HER BASELINE. EXPIRATORY WHEEZES HEARDING IN ALL LUNG RAMOS AND PT DENIES BEING SHORT OF BREATH AT THIS TIME. ABRASIONS NOTED TO PT BILATERAL SHINS, PT STATES THAT SHE BUMPS INTO THINGS AT HOME AND THATS WHAT CAUSED IT. PT DENIES NEEDS AT THIS TIME. IV TO LEFT FOREARM FLUSHES WELL, NO SIGNS OF INFILTRATION AT THIS TIME. BED IN LOWEST POSITION, CALL LIGHT IN REACH, BED ALARM ON
--- NOTE | 2023-10-29 15:39 | NUR ---
Drop Forge Hand met with patient to discuss discharge planning. Patient lives in [place], [place] but is here in [place] visiting friends. Patient advised her daughter, Maricruz also lives in [place] and was the one who drove her here. Patient stated they were supposed to leave to go back to [place] tomorrow, but she isn't sure if she will be up to that trip yet. Patient has home oxygen set up through [facility] and also has a motorized scooter. Patient is normally independent with ADLS but does not walk long distances. Patient is working on getting a primary care doctor set up in [place], but may not have an appointment until February. Discharge Plan: Home
--- NOTE | 2023-10-29 19:28 | NUR ---
REPORT GIVEN TO JOHNNIE PALMA
--- NOTE | 2023-10-29 21:00 | NUR ---
Patient resting in bed. Denies any pain or needs at this time. Assessment complete. IV in left forearm flushes easily, patient complains of pain. Call light and personal items in reach. Bed in low positon and bed alarm on.
[2023-10-30] VITALS (12 sets, daily range): BP systolic 124–163; BP diastolic 57–83; PULSE 75–88; TEMP 97.8–98.8
--- NOTE | 2023-10-30 06:00 | NUR ---
Patient resting in bed. IV in left forearm has visible redness/ streak up vein and complains of pain, IV removed. New IV in left forearm started with no complications. Patient had an uneventful evening. Call light and personal items in reach. Bed in low position
[2023-10-30 07:46] LABS: BASO % 0.6 % (0.0-2.0); EOS # 0.1 K/mm3 (0.0-0.7); EOS % 0.7 % (0.0-4.0); GRAN # 4.6 K/mm3 (1.4-6.5); GRAN % 68.9 % (42.2-75.2); HEMATOCRIT 40.8 % (37.0-47.0); HEMOGLOBIN 12.7 g/dl (12.5-16.0); LYMPH # 1.2 K/mm3 (1.2-3.4); MEAN CELL VOLUME 90 fl (80.0-100.0); MEAN CORPUSCULAR HEMOGLOBIN 28 pg (27-31); MEAN CORPUSCULAR HGB CONC 31 g/dl (33.0-37.0); MEAN PLATELET VOLUME 10.8 fl (7.4-10.4); MONO # 0.8 K/mm3 (0.1-0.6); MONO % 11.5 % (1.7-9.3); PLATELET COUNT 181 K/mm3 (130-400); RED BLOOD COUNT 4.52 M/mm3 (4.10-5.30); REDCELL DISTRIBUTION WIDTH-CV 13.9 % (11.5-14.5)
[2023-10-30 08:02] LABS: ALBUMIN 3.6 gm/dL (3.4-4.8); CALCIUM 9.6 mg/dL (8.4-10.2); CREATININE, serum 0.72 mg/dL (0.57-1.11); MAGNESIUM 1.8 mg/dL (1.6-2.6); PHOSPHOROUS 3.2 mg/dL (2.3-4.7); POTASSIUM 3.9 mmol/L (3.5-4.5)
--- NOTE | 2023-10-30 10:00 | NUR ---
PT SITTING IN BED UPON ENTERING. ASSESSMENT DONE, MEDS GIVEN PER ORDER. POTASSIUM REPLACED WITH 1 DOSE. PT REPORTS A HEADACHE BUT DENIES WANTING ANYTHING FOR IT AT THIS TIME. PT REPORTS SHORTNESS OF BREATH AND CHEST CONGESTION. PT ON 4L NASAL CANNULA, EXIPRATORY WHEEZES HEARD IN ALL RAMOS. PT COUGHING AT STATES THAT SHE HAS BEEN PRODUCING SOME SPUTUM TODAY. PT HAS ABRASIONS TO BILATERAL SHINS, PT STATES THAT SHE BUMPS INTO THINGS AT HOME. IV IN LEFT FOREARM FLUSHES WELL WITH NO SIGNS OF COMPLICATIONS. PT SEEMS TO BE SHIVERING IN BED. THIS NURSE ASKED PT IF SHE WAS COLD AND SHE RESPONDED NO. PT SAYS THAT THIS HAPPENS WHEN SHE DOESNT FEEL GOOD. PT DENIES NEEDS AT THIS TIME AND DENIES WANTING BREAKFAST STATING THAT HER DAUGHTER WILL BRING HER SOMETHING. BED IN LOWEST POSITION AND CALL LIGHT IN REACH. DROPLET/CONTACT PRECAUTIONS IN PLACE
--- NOTE | 2023-10-30 12:28 | NUR ---
GRETA RN LET THIS NURSE KNOW THAT PT HAS A VISITOR IN ROOM AND REFUSING TO WEAR A MASK. PT AND VISITOR EDUCATED ON PRECAUTIONS AND VISITOR IS STILL REFUSING TO WEAR A MASK. WILL REEDUCATE APPROPRIATELY.
--- NOTE | 2023-10-30 17:53 | NUR ---
UPON ENTERING PT TELLS THIS NURSE THAT SHE STILL IS FEELING SHORT OF BREATH. NOT MORE THAN EARLIER BUT IT HAS BEEN THROUGHOUT THE SHIFT. PT IS ALSO COMPLAINING OF CHEST CONGESTION AND STATES "I CANT BRING ANYTHING UP AND IT HURTS WHEN I COUGH" PT ON 4L NASAL CANNULA. DR JO NOTIFIED AND TOLD THIS NURSE TO CALL RT FOR A BREATHING TREATMENT AND GAVE THIS NURSE A VERBAL ORDER FOR MUCINEX 600MG. THIS NURSE REPEATED ORDER BACK AND HOSPITALIST CONFIRMED AND TOLD THIS NURSE THAT HE IS LEAVING FOR THE DAY.
--- NOTE | 2023-10-30 18:32 | NUR ---
DOXYCYCLINE STARTED PER ORDER IN LEFT FOREARM IV. PT ON 4L NC WITH O2 SATS 97%. O2 TITRATED DOWN TO 3.5L IN AN ATTEMPT TO KEEP SATS BETWEEN 92-95% PER PULMONOLGY NOTES. PT REPORTING CONTINUED CHEST CONGESTION AT GIVEN PRN MUCINEX. PT DENIES ORDERING DINNER AND STATE THAT HER DAUGHTER BROUGHT HER FOOD AND THAT SHE PREFERS THAT. PT DENIES NEEDS AT THIS TIME. BED IN LOWEST POSITION, CALL LIGHT IN REACH
--- NOTE | 2023-10-30 18:55 | NUR ---
REPORT GIVEN TO JOHNNIE WALDEN
--- NOTE | 2023-10-30 20:00 | NUR ---
Assessment complete. A&Ox4. Denies pain/nausea. Short of air at rest. VS stable. Currently on O2@3.5L/NC with o2 saturations 94%. TELE reporting SR. Left forearm INT flushes without difficulty. Voiding without difficulty. Is up independent in the room. Noted to have bilat lower ext abrasions. Plan of care discussed for this shift to include meds/pain control/calling for questions/concerns. Verbalizes understanding. Call light in reach. Will monitor.
[2023-10-31] VITALS (11 sets, daily range): BP systolic 129–168; BP diastolic 68–97; PULSE 70–88; TEMP 8
--- NOTE | 2023-10-31 05:12 | NUR ---
Patient has rested off and on this shift. VS stable. TELE reporting SR. O2@3.5L/NC with O2 sats 32-95%. Left forearm INT flushes without difficulty. No s/s of distress noted.
[2023-10-31 07:30] LABS: BASO % 0.5 % (0.0-2.0); EOS # 0.1 K/mm3 (0.0-0.7); EOS % 0.8 % (0.0-4.0); GRAN # 3.8 K/mm3 (1.4-6.5); GRAN % 61.9 % (42.2-75.2); HEMOGLOBIN 11.9 g/dl (12.5-16.0); LYMPH # 1.6 K/mm3 (1.2-3.4); LYMPH % 26.1 % (20.0-51.0); MEAN CELL VOLUME 88 fl (80.0-100.0); MEAN CORPUSCULAR HEMOGLOBIN 28 pg (27-31); MEAN CORPUSCULAR HGB CONC 32 g/dl (33.0-37.0); MEAN PLATELET VOLUME 10.9 fl (7.4-10.4); MONO # 0.6 K/mm3 (0.1-0.6); MONO % 10.4 % (1.7-9.3); PLATELET COUNT 186 K/mm3 (130-400); REDCELL DISTRIBUTION WIDTH-CV 13.8 % (11.5-14.5)
[2023-10-31 07:44] LABS: ALBUMIN 3.2 gm/dL (3.4-4.8); CALCIUM 9.5 mg/dL (8.4-10.2); CREATININE, serum 0.64 mg/dL (0.57-1.11); MAGNESIUM 1.6 mg/dL (1.6-2.6); PHOSPHOROUS 2.8 mg/dL (2.3-4.7); POTASSIUM 3.9 mmol/L (3.5-4.5)
--- NOTE | 2023-10-31 10:00 | NUR ---
PT SITTING IN BED UPON ENTERING. ASSESSMENT DONE, MEDS GIVEN PER ORDER. PT CONTINUES TO REPORT CHEST CONGESTION WITH NO IMPROVEMENT OVER THE PAST FEW DAYS. PT HAS A NONPRODUCTIVE COUGH, IV IN LEFT FOREARM THAT FLUSHES WELL, AND IS ON 2L NASAL CANNULA WITH O2 SATS AT 95%. PT STATES THAT HER NOSE IS STOPPED UP AND REFUSED AM FLONASE. POTASSIUM REPLACE X1. PT DENIES NEEDS AT THIS TIME BUT STATES THAT SHE IS CONCERNED TO GO HOME TODAY SINCE SHE FEELS SHORT OF BREATH STILL. BED IN LOWEST POSITION, CALL LIGHT IN REACH.
--- NOTE | 2023-10-31 11:15 | NUR ---
TEGADERM TO LEFT FOREARM BLOODY, IV STILL FLUSHING WELL WITHOUT COMPLICATIONS. TEGADERM REMOVED AND SITE CLEANED. PT PREVIOUSLY ON 2L NASAL CANNULA WITH O2SATS 95%. RESPIRATORY RAISED PT FROM 2 TO 4L NASAL CANNULA. PT STILL REPORTING SHORTNESS OF BREATH AT THIS TIME
--- NOTE | 2023-10-31 14:38 | NUR ---
PTS DAUGHTER AT BEDSIDE. THIS NURSE EDUCATED PT ON RSV AND CONTACT/DROPLET ISOLATION THE PT IS IN. DAUGHTER STATES "IM AROUND IT AT HOME" STATING THAT HER KIDS GAVE IT TO HER MOM. PTS DAUGHTER REFUSING TO WEAR APPROPRIATE PPE. DAUGHTER ASKING WHAT THE NEXT MOVE WOULD BE REGARDING REHAB SINCE PT IS STILL TOO WEAK TO TRAVEL TO [place]. THIS NURSE NOTIFIED DAUGHTER THAT PT HAS CONTINUOSLY STATED THAT SHE WANTS TO GO HOME AND HASNT MENTIONED REHAB. DAUGHTER WOULD LIKE TO DISCUSS OPTIONS. JOHN FROM SOCIAL WORK UPDATED
--- NOTE | 2023-10-31 16:48 | NUR ---
Web Designer spoke with patient's daughter, Maricruz who advised patient may need SNF before returning to [facility]. Maricruz is unsure how patient would tolerate transport home, but is also concerned with the logistics of her staying. Maricruz inquired about services and KIRSTEN advised patient would need set up with a PCP before this could be established. KIRSTEN also advised [facility] and [facility] are the two facilities that can accept weekend admissions. Maricruz is agreeable to have referrals sent. KIRSTEN faxed referrals to both and is awaiting acceptance or denial. Discharge Plan: SNF vs return home to [place]
--- NOTE | 2023-10-31 18:20 | NUR ---
PT ON 4L NASAL CANNULA AND REPORTS A DECREASE IN SHORTNESS OF BREATH COMPARED TO EARLIER STATING "I FINALLY CAUGHT MY BREATH". PT DOES REPORT THAT WITH EXERTION THE SHORTNESS OF BREATH RETURNS. ANTIBIOTICS STARTED PER ORDER AND PT DENIES NEEDS AT THIS TIME
--- NOTE | 2023-10-31 20:00 | NUR ---
UPON SHIFT ASSESSMENT, JULY WAS UP IN BED EATING DINNER TRAY. PURSED-LIP BREATHING WAS NOTED. LUNG SOUNDS ARE DIMINISHED. SHE IS CHEERFUL AND AXO X4. SHE DENIES ANY PAIN, BUT C/O OF DIFFICULTY EXPELLING SPUTUM. PATIENT EDUCATION PROVIDED ON MUCINEX AND TAKING WITH FULL GLASS OF WATER. VSS ARE WNL AND SHE REMAINS ON 4 L O2 NC. TREMORS NOTED, HOWEVER, NEUROS ARE GOOD. PATIENT STATES, "EVERYBODY SAYS I AM JUST JUMPY." IV SITE LEAKING DURING FLUSH.
[2023-11-01] VITALS (7 sets, daily range): BP systolic 140–152; BP diastolic 80–89; PULSE 63–93; TEMP 98–98.7
--- NOTE | 2023-11-01 07:33 | NUR ---
NO EMERGENT STATUS CHANGES THROUGHOUT THE NIGHT FOR ISAIAH. SHE STILL EXHIBITS A TENACIOUS PRODUCTIVE COUGH. VSS WNL, TELE NS. CALL LIGHT WITHIN REACH.
--- NOTE | 2023-11-01 08:38 | NUR ---
PT RESTING IN BED WITH SOA AT REST AND 4L NC. PRODUCTIVE COUGH BUT UNABLE TO COLLECT SPECIMEN. PT APPEARS ANXIOUS, SHAKEY AT REST. BLE +1, SCABS ON BILATERAL SHINS. NO NEEDS AT THIS TIME. WILL CONTINUE TO MONITOR.
[2023-11-01] MEDS ORDERED: PREDNISONE20 MG PO (12:39)
[2023-11-01] MEDS ORDERED: MAG-OX 400400 MG/TAB PO (12:39)
[2023-11-01] MEDS ORDERED: MUCUS RELIEF200 MG PO (12:39)
[2023-11-01] MEDS ORDERED: AMOXICILLIN 8751 TAB PO (12:41)
--- NOTE | 2023-11-01 14:43 | NUR ---
KIRSTEN visited with patients daughter via phone Maricruz [phone] (she was left as POC) daughter expressed that the family would like to talk with about transporting patient/mother back to [place] for care and support. Patient's daughter was tracking that 2 local correction referrals were sent out for patient. She was going to converse with her mother/patient and Dr and follow up with KIRSTEN about discharge plan later in afternoon. KIRSTEN received notification from [facility] that referral was denied and pending with [facility], additional information would be needed from DR on update with patient status. KIRSTEN visited with patient directly about her plan and if she wanted to travel back to [place] with her current medical condition or explore referral for SNF locally. Patient stated that if she was medically cleared to travel that she wanted to leave and return back to [place]. Patient shared that she traveled to [place] with portable oxygen approx 4L and did fine, she informed KIRSTEN that she was able to recharge device in car. Patient expressed to KIRSTEN that she feels that she will be better supported with family in [place] and would like to visit with medical staff on that plan. KIRSTEN will update nurse and Dr on patient wishes at this time. SW was informed that she would be discharging with family and has portable oxygen for trip- no further needs at this time. HH recommendations will be sent with d/c packet, patient was informed that she needed establish care with PCP for this referral to be completed in [place] area.
--- NOTE | 2023-11-01 15:13 | NUR ---
IV REMOVED. PT ESCORTED OUT OF BUILDING AT THIS TIME.
--- NOTE | 2023-11-05 11:16 | NUR ---
On 11/04/22, social insurance specialist spoke with patient's daughter, Maricruz #[phone] and advised that patient will need to see her primary care provider and get orders and set up for home health.
== END 2023-11-01 15:00 | disposition home or self-care (01) | DRG 189 ==
LOC: COL.ER 11:53 → MEDICAL 15:44
PROVIDERS: Nurse Practitioner; ADMIT Internal Medicine
DX: J96.21 Acute and chronic respiratory failure with hypoxia (principal); E43 Unspecified severe protein-calorie malnutrition; Z68.1 Body mass index [BMI] 19.9 or less, adult; K86.1 Other chronic pancreatitis; J43.9 Emphysema, unspecified; B97.4 Respiratory syncytial virus as the cause of diseases classified elsewhere; F10.10 Alcohol abuse, uncomplicated; I10 Essential (primary) hypertension; F32.A Depression, unspecified; E78.5 Hyperlipidemia, unspecified; R53.81 Other malaise; Z20.822 Contact with and (suspected) exposure to COVID-19; Z99.81 Dependence on supplemental oxygen; Z87.891 Personal history of nicotine dependence; Z79.899 Other long term (current) drug therapy; Z23 Encounter for immunization
CPT/HCPCS: G0378; J0696; J1100; J2920